=== PATIENT | male | born 2000 | race Hispanic/Latino ===

== ENCOUNTER 2020-11-23 08:38 | Emergency (ER) | payer SELFPAY ==
[~2020-11-23] VITALS: Ht 167.6 cm; Wt 86.8 kg
[2020-11-23] MEDS ORDERED: CYCLOBENZAPRINE10 MG PO (10:27)
[2020-11-23] MEDS ORDERED: MEDDOSEPAK PO (10:27)
[2020-11-23] MEDS ORDERED: NAPROXEN500 MG PO (10:27)
[2020-11-23 10:42] VITALS: BP 138/70
== END 2020-11-23 10:49 | disposition home or self-care (01) | DRG 552 ==
LOC: ED 08:38
DX: M51.26 Other intervertebral disc displacement, lumbar region (principal)